=== PATIENT | female | born 1970 | race Caucasian/White ===

== ENCOUNTER 2022-06-24 18:29 | Emergency (ER) | payer SELFPAY ==
[~2022-06-24] VITALS: Ht 175.3 cm; Wt 104.5 kg
[2022-06-24 22:49] VITALS: BP 109/63
== END 2022-06-24 23:28 | disposition home or self-care (01) ==
LOC: EMS 18:35
DX: M25.562 Pain in left knee (principal); Z98.51 Tubal ligation status; Z98.890 Other specified postprocedural states; Z90.89 Acquired absence of other organs; Z88.0 Allergy status to penicillin; Z88.6 Allergy status to analgesic agent; Z88.8 Allergy status to other drugs, medicaments and biological substances
CPT/HCPCS: 93970; 99284; Z7502